=== PATIENT | male | born 1965 | race Two or more races ===

== ENCOUNTER 2021-07-04 07:11 | Outpatient (CLI) | payer OTHER | END 2021-07-04 07:20 | disposition home or self-care (01) | LOC: MRI 07:11 | PROVIDERS: ATTEND Orthopaedic Surgery | DX: M25.511 Pain in right shoulder (principal) | CPT/HCPCS: 73221 ==

== ENCOUNTER 2021-07-04 08:00 | Outpatient (CLI) | payer OTHER | END 2021-07-04 08:30 | disposition home or self-care (01) | LOC: PPH VACUNA 08:00 | PROVIDERS: ATTEND Emergency Medicine Pediatric Emergency Medicine | DX: Z23 Encounter for immunization (principal) ==

== ENCOUNTER 2021-07-11 14:54 | Outpatient (CLI) | payer OTHER | END 2021-07-11 15:03 | disposition home or self-care (01) | LOC: RAD 14:54 | PROVIDERS: ATTEND Physical Medicine & Rehabilitation | DX: M54.50 Low back pain, unspecified (principal) ==